=== PATIENT | male | born 1990 | race Caucasian/White ===

== ENCOUNTER 2016-08-30 07:59 | Outpatient (CLI) | payer OTHER ==
--- NOTE | 2016-08-30 11:02 | MRI Report ---
EXAM: RIGHT KNEE MRI WITHOUT CONTRAST EXAM DATE: 08/30/2016 08:49 AM. CLINICAL HISTORY: Soccer injury with pain and weakness/collapse for one month. Anterior and medial fabby int line pain with popping beneath patella. COMPARISON: None. TECHNIQUE: Multiplanar, multisequence T1-weighted and fluid-sensitive sequences of the knee without c ontrast. Other: None. FINDINGS: Bones: No fractures or subluxations. No marrow edema. No bone lesions. Articular Cartilage: There is chondromalacia patella grade 1 affecting the middle of the femoral troc hlea. The remaining hyaline cartilage appears unremarkable. Medial Meniscus: The medial meniscus is intact. Lateral Meniscus: The lateral meniscus is intact. Cruciate Ligaments: The anterior and posterior cruciate ligaments are intact. Collateral Ligaments: The medial collateral and lateral collateral ligamentous structures are intact. Tendons: The quadriceps, patellar, semimembranosus, and popliteus tendons are unremarkable. Musculature: No edema or fatty atrophy. Other: Small joint effusion. No popliteal cyst. No loose bodies. The medial and lateral retinacula a re intact. The subcutaneous tissues and fat pads are unremarkable. IMPRESSION: 1. 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 2. Small joint effusion. 3. No meniscal or ligamentous injury identified. [facility] Referring Provider Line: [phone] SITE ID: [id number]
== END 2016-08-30 08:00 | disposition home or self-care (01) ==
LOC: DI 07:59
PROVIDERS: ATTEND Orthopaedic Surgery
DX: M94.261 Chondromalacia, right knee (principal); M25.461 Effusion, right knee

== ENCOUNTER 2019-02-12 14:50 | Emergency (ER) | payer OTHER ==
[2019-02-12] MEDS ORDERED: MAG HYDROX/AL HYDROX/SIMETH 30 ML UDC PO STA (17:29)
[2019-02-12] MEDS ORDERED: LIDOCAINE VISCOUS 2% 15 ML UDC MM STA (17:29)
--- NOTE | 2019-02-12 17:31 | ED Physician Documentation ---
PD HPI URI - Stated complaint Stated Complaint: SORE THROAT - Chief complaint Chief Complaint: Heent - History obtained from History obtained from: Patient (For about 5 days now he has had feeling of something stuck in his throat. He points to around the thyroid as the area of pain. He feels like it hurts to swallow. There is no associated fever or other upper respiratory symptoms. He is trialed antacids without relief. It did not start during swallowing or while taking a pill.) Review of Systems Constitutional: denies: Fever, Chills Nose: denies: Rhinorrhea / runny nose, Congestion Throat: reports: Sore throat Cardiac: denies: Chest pain / pressure, Palpitations PD PAST MEDICAL HISTORY - Present Medications Home Medications: Ambulatory Orders Medication Instructions Recorded Confirmed Magic Mouthwash 5 ml PO Q4H PRN #100 ml 02/12/19 - Allergies Allergies/Adverse Reactions: Allergies Allergy/AdvReac Type Severity Reaction Status Date / Time No Known Drug Allergies Allergy Verified 02/12/19 14:56 PD ED PE NORMAL - Vitals Vital signs reviewed: Yes - General General: Alert and oriented X 3, No acute distress - HEENT HEENT: PERRL, EOMI, Other (Visualized portions of the oropharynx are normal) - Neck Neck: Supple, no meningeal sign, No bony TTP - Neuro Neuro: Alert and oriented X 3, Normal speech Results - Vitals Vitals: Vital Signs - 24 hr 02/12/19 14:56 Temperature 37.5 C Heart Rate 61 Respiratory 17 Rate Blood Pressure 161/89 H O2 Saturation 97 Oxygen O2 Source Room air - Labs Labs: Laboratory Tests 02/12/19 17:21 Group A Strep Rapid Negative Departure - Departure Disposition: 01 Home, Self Care Clinical Impression: Foreign body sensation in throat Condition: Good Record reviewed to determine appropriate education?: Yes Instructions: ED Pharyngitis Viral Prescriptions: Magic Mouthwash 5 ml PO Q4H PRN #100 ml PRN Reason: throat pain Comments: Your strep test is negative, the numbing stuff should be able to help you eat in the meantime. It is reasonable to follow-up with an research administrator if your symptoms are persistent, the closest is in [place], the phone number is [phone].
[2019-02-12 18:18] VITALS: BP 121/87
== END 2019-02-12 18:26 | disposition home or self-care (01) ==
LOC: ED 14:50
DX: R09.89 Other specified symptoms and signs involving the circulatory and respiratory systems (principal); R07.0 Pain in throat
CPT/HCPCS: 87070; 87430; 99283; 99284; A9270

== ENCOUNTER 2019-04-14 08:59 | Outpatient (CLI) | payer OTHER ==
[2019-04-14] MEDS ORDERED: BARIUM SULFATE 135 ML BOTTLE PO ONE (10:04)
[2019-04-14] MEDS ORDERED: SIMETHICONE/SOD BICARB/CIT AC 1 EACH PACKET PO ONE (10:04)
[2019-04-14] MEDS ORDERED: BARIUM SULFATE 148 GM POWDER PO ONE (10:04)
[2019-04-14] MEDS ORDERED: BARIUM SULFATE 700 MG TABLET PO ONE (10:04)
--- NOTE | 2019-04-14 11:25 | XRAY Report ---
Reason: REFLUX, DYSPHAGIA Procedure Date: 04/14/2019 Accession Number: [id number] / [id number] Procedure: FL - Esophogram CPT Code: Final Report FULL RESULT: EXAM: BARIUM ESOPHAGRAM EXAM DATE: 04/14/2019 09:57 AM. CLINICAL HISTORY: Reflux, dysphagia. COMPARISONS: None. TECHNIQUE: Routine double contrast esophagram. Fluoroscopy Time: 1 minute 32 seconds. Number of Images: 106. FINDINGS: Swallowing Mechanism: Normal. No tracheal aspiration or penetration. Esophageal Motility: Normal peristaltic stripping wave. Mucosa: Normal. No ulcerations or masses. Gastroesophageal Junction: Spontaneous reflux is noted in the setting of a small hiatal hernia. Other: None. IMPRESSION: Spontaneous reflux in the setting of a small hiatal hernia. [facility]
== END 2019-04-14 09:00 | disposition home or self-care (01) ==
LOC: DI 08:59
PROVIDERS: ATTEND Otolaryngology
DX: K44.9 Diaphragmatic hernia without obstruction or gangrene (principal); K21.9 Gastro-esophageal reflux disease without esophagitis; R13.10 Dysphagia, unspecified
CPT/HCPCS: 74220; A9270

== ENCOUNTER 2019-04-26 13:01 | Emergency (ER) | payer OTHER ==
--- NOTE | 2019-04-26 13:22 | ED Physician Documentation ---
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 Tetanus up-to-date. Patient is right-handed. Nothing makes it better or worse. Review of Systems Neurologic: denies: Focal weakness, Numbness PD PAST MEDICAL HISTORY - Past Medical History Past Medical History: No - Past Surgical History Past Surgical History: No - Present Medications Home Medications: Ambulatory Orders Medication Instructions Recorded Confirmed Venlafaxine ER [Effexor ER] 75 mg PO DAILY 04/26/19 04/26/19 - Allergies Allergies/Adverse Reactions: Allergies Allergy/AdvReac Type Severity Reaction Status Date / Time No Known Drug Allergies Allergy Verified 02/12/19 14:56 - Social History Does the pt smoke?: No Smoking Status: Never smoker - Family History Family history: reports: Non contributory - Immunizations Immunizations are current?: Yes Immunizations: TDAP current <10years PD ED PE NORMAL - Vitals Vital signs reviewed: Yes - General General: Alert and oriented X 3, No acute distress, Well developed/nourished - HEENT HEENT: Moist mucous membranes - Derm Derm: Warm and dry - Extremities Extremities: Other (1 cm laceration to the distal phalanx, dorsal aspect of the left third digit. Does not involve the nail. Subcutaneous, linear. Neurovascularly intact. No tendon injury) - Neuro Neuro: Alert and oriented X 3 - Psych Psych: Normal mood, Normal affect Results - Vitals Vitals: Vital Signs - 24 hr 04/26/19 13:10 Temperature 36.5 C Heart Rate 61 Respiratory 16 Rate Blood Pressure 140/83 H O2 Saturation 98 Oxygen O2 Source Room air Procedures - Laceration (location) Left third digit Length in cm: 1 Wound type: Linear, Into subcut fat, Clean Neurovascular status: Sensory intact, Motor intact, Vascular intact Tendon involvement: Tendon intact Wound Preparation: Irrigated copiously NS Skin layer closure: Dermabond, Other (T-ring closure system) Other: Patient tolerated well, No complications, Neurovascular intact, Tetanus UTD Complexity: Simple PD MEDICAL DECISION MAKING - ED course Complexity details: considered differential, d/w patient ED course: Laceration repaired. Tolerated well. Warnings of infection and instructions on wound care given at bedside. Also counseled on how to minimize scarring. Patient counseled regarding signs and symptoms for which I believe and urgent re-evaluation would be necessary. Patient with good understanding of and agreement to plan and is comfortable going home at this time This document was made in part using voice recognition software. While efforts are made to proofread this document, sound alike and grammatical errors may occur. Departure - Departure Disposition: 01 Home, Self Care Clinical Impression: Finger laceration Qualifiers: Encounter type: initial encounter Finger: unspecified finger Damage to nail status: without damage Foreign body presence: without foreign body Laterality: left Qualified Code(s): S61.219A - Laceration without foreign body of unspecified finger without damage to nail, initial encounter Condition: Good Instructions: ED Laceration Ext Skin Glue Follow-Up: Sowmya Metz MD [Primary Care Provider] - As Needed Comments: Return if you notice redness, swelling or drainage from the wound. The T ring system should fall off in approximately 5 to 7 days. Keep the wound clean.
[2019-04-26 13:25] VITALS: BP 140/83
== END 2019-04-26 13:45 | disposition home or self-care (01) ==
LOC: ED 13:01
DX: S61.213A Laceration without foreign body of left middle finger without damage to nail, initial encounter (principal); W27.8XXA Contact with other nonpowered hand tool, initial encounter; Y93.89 Activity, other specified
CPT/HCPCS: 12001; 99282; 99283